=== PATIENT | female | born 1960 | race Caucasian/White ===

== ENCOUNTER → 2016-07-04 | Outpatient (CLI) | payer OTHER ==
[~2016-07-04] VITALS: Ht 162.6 cm; Wt 84.8 kg
[~2016-07-04] MED LIST: ASPIRIN CHEWABL81 MG PO; CALCIUM 600 +1 EACH PO; CLARITIN10 M2 PO; EFFEXOR XR 75 M75 MG PO; LEVOTHYROXINE100 MCG PO; PREVACID30 MG PO; SINGULAIR10 MG PO; SUDOGEST30 MG PO; TENORMIN 50 MG50 MG PO; VITAMIN B-121000 MCG PO; ZESTRIL2.5 MG PO
== END ==
LOC: OPSV 12:00
DX: K50.00 Crohn's disease of small intestine without complications (principal)
CPT/HCPCS: 96365; J3380

== ENCOUNTER → 2016-08-29 | Outpatient (CLI) | payer OTHER ==
[~2016-08-29] VITALS: Ht 162.6 cm; Wt 84.8 kg
== END ==
LOC: OPSV 09:00
DX: K50.00 Crohn's disease of small intestine without complications (principal)
CPT/HCPCS: 96365; J3380

== ENCOUNTER 2020-06-13 11:58 | Inpatient (IN) | payer OTHER ==
[~2020-06-13] VITALS: Ht 162.6 cm; Wt 86.2 kg
[2020-06-13 12:41] LABS: HEMOGLOBIN 13.7 gm/dl (12.3-15.3); RED BLOOD COUNT 4.33 M/UL (4.00-5.10); WHITE BLOOD COUNT 3.8 K/UL (4.5-11.0)
[2020-06-13 13:12] LABS: BUN/CREATININE RATIO 13 (0-10)
[2020-06-13] MEDS ORDERED: CYMBALTA60 MG PO (17:27)
[2020-06-13] MEDS ORDERED: CRESTOR5 MG PO (17:27)
[2020-06-13] MEDS ORDERED: XYZAL5 MG PO (17:28)
[2020-06-13] MEDS ORDERED: ZESTRIL5 MG PO (17:29)
[2020-06-13] MEDS ORDERED: VITAMIN C500 MG PO (17:30)
[2020-06-14 04:46] LABS: HEMOGLOBIN 12.8 gm/dl (12.3-15.3); RED BLOOD COUNT 4.05 M/UL (4.00-5.10)
[2020-06-14 04:48] LABS: WHITE BLOOD COUNT 2.1 K/UL (4.5-11.0)
[2020-06-14 05:10] LABS: BUN/CREATININE RATIO 16 (0-10)
[2020-06-15 04:21] LABS: HEMOGLOBIN 12.5 gm/dl (12.3-15.3); RED BLOOD COUNT 3.96 M/UL (4.00-5.10)
[2020-06-15 04:26] LABS: WHITE BLOOD COUNT 4.9 K/UL (4.5-11.0)
[2020-06-15 04:57] LABS: BUN/CREATININE RATIO 20 (0-10)
[2020-06-16 02:43] LABS: BUN/CREATININE RATIO 19 (0-10)
[2020-06-17 04:13] LABS: BUN/CREATININE RATIO 24 (0-10)
[2020-06-18] MEDS ORDERED: DECADRON IM/I4 MG/ML PO (11:46)
[2020-06-18] MEDS ORDERED: PHENERGAN 25 MG25 M1 PO (11:46)
[2020-06-19 03:28] LABS: RED BLOOD COUNT 4.43 M/UL (4.00-5.10); WHITE BLOOD COUNT 8.8 K/UL (4.5-11.0)
[2020-06-19 03:44] LABS: BUN/CREATININE RATIO 24 (0-10)
--- NOTE | 2020-06-19 12:10 | NUR ---
CALLED DR. STOCKTON PERTAING TO PATIENTS INTIVIO INFUSION. CONSULTED WITH CASE MANAGEMENT PER PROVIDERS SUGGESTION. NO RESOLUTION AT THIS TIME WILL CONTINUE TO MONITOR.
== END 2020-06-19 18:25 | disposition home or self-care (01) | DRG 177 ==
LOC: ER1 11:58 → CDU 16:06 → MED SURG 4 16:06 → PROG CARE 06-14 09:42 → MED SURG 4 06-15 00:25
PROVIDERS: Physician Assistant Medical; ADMIT Internal Medicine
PROC: XW033E5 Introduction of Remdesivir Anti-infective into Peripheral Vein, Percutaneous Approach, New Technology Group 5 (ICD-10-PCS; 2020-06-13)
PROC: 8E0ZXY6 Isolation (ICD-10-PCS; 2020-06-13)
PROC: XW13325 Transfusion of Convalescent Plasma (Nonautologous) into Peripheral Vein, Percutaneous Approach, New Technology Group 5 (ICD-10-PCS; principal; 2020-06-15)
DX: U07.1 COVID-19 (principal); J12.82 Pneumonia due to coronavirus disease 2019; J18.9 Pneumonia, unspecified organism; J96.01 Acute respiratory failure with hypoxia; K50.90 Crohn's disease, unspecified, without complications; D69.6 Thrombocytopenia, unspecified; E11.9 Type 2 diabetes mellitus without complications; E03.9 Hypothyroidism, unspecified; I10 Essential (primary) hypertension; D72.819 Decreased white blood cell count, unspecified; R53.81 Other malaise; J45.909 Unspecified asthma, uncomplicated; Z90.49 Acquired absence of other specified parts of digestive tract; Z79.82 Long term (current) use of aspirin; Z95.0 Presence of cardiac pacemaker; Z79.890 Hormone replacement therapy; Z79.899 Other long term (current) drug therapy
CPT/HCPCS: 0240U; 36415; 36600; 71045; 80048; 80053; 82550; 82553; 82803; 82962; 83036; 83605; 83690; 83874; 84484; 85025; 85027; 85610; 86900; 86901; 86927; 87081; 93005; 94760; 96365; 96366; 96367; 96368; 96375; 96376; 97161; 97530-GP-CQ; 99285; G0378; J1100; J1650; J1956; J7030

== ENCOUNTER → 2020-07-03 | Outpatient (CLI) | payer OTHER ==
[~2020-07-03] VITALS: Ht 162.6 cm; Wt 83.9 kg
[~2020-07-03] MED LIST changes: +CRESTOR5 MG PO; +CYMBALTA60 MG PO; +DECADRON IM/I4 MG/ML PO; +PHENERGAN 25 MG25 M1 PO; +VITAMIN C500 MG PO; +XYZAL5 MG PO; +ZESTRIL5 MG PO
== END ==
LOC: OPSV 10:59
DX: K50.00 Crohn's disease of small intestine without complications (principal)
CPT/HCPCS: 96365; J3380; J7050

== ENCOUNTER → 2020-08-28 | Outpatient (CLI) | payer OTHER | LOC: OPSV 11:00 | DX: K50.00 Crohn's disease of small intestine without complications (principal) | CPT/HCPCS: 96365; J3380; J7050 ==

== ENCOUNTER → 2020-10-23 | Outpatient (CLI) | payer OTHER ==
[~2020-10-23] VITALS: Ht 162.6 cm; Wt 83.9 kg
== END ==
LOC: OPSV 11:00
DX: K50.00 Crohn's disease of small intestine without complications (principal)
CPT/HCPCS: 96365; J3380; J7050

== ENCOUNTER → 2020-12-18 | Outpatient (CLI) | payer OTHER ==
[~2020-12-18] VITALS: Ht 162.6 cm; Wt 83.9 kg
== END ==
LOC: OPSV 11:00
DX: K50.00 Crohn's disease of small intestine without complications (principal)
CPT/HCPCS: 96365; J3380; J7050

== ENCOUNTER → 2021-02-21 | Outpatient (CLI) | payer OTHER ==
[~2021-02-21] VITALS: Ht 162.6 cm; Wt 83.9 kg
== END ==
LOC: OPSV 02-12 11:00
DX: K50.00 Crohn's disease of small intestine without complications (principal)
CPT/HCPCS: 96365; J3380; J7050

== ENCOUNTER → 2021-04-01 | Outpatient (CLI) | payer OTHER | LOC: KOH-I 14:20 | DX: M25.561 Pain in right knee (principal); M17.0 Bilateral primary osteoarthritis of knee | CPT/HCPCS: 73562 ==

== ENCOUNTER → 2021-05-22 | Day surgery (SDC) | payer OTHER ==
[~2021-05-22] MED LIST changes: +ABILIFY 2 MG TAB2 MG PO; +PROAIR HFA8.5 GM INH; +TRULICITY0.75 MG/0. SQ
== END | disposition home or self-care (01) ==
LOC: OR 06:08
DX: D12.2 Benign neoplasm of ascending colon (principal); D12.5 Benign neoplasm of sigmoid colon; K57.30 Diverticulosis of large intestine without perforation or abscess without bleeding; K64.0 First degree hemorrhoids; I10 Essential (primary) hypertension; E11.9 Type 2 diabetes mellitus without complications; E78.5 Hyperlipidemia, unspecified; Z88.0 Allergy status to penicillin; Z88.5 Allergy status to narcotic agent; Z88.8 Allergy status to other drugs, medicaments and biological substances; Z79.82 Long term (current) use of aspirin; Z79.4 Long term (current) use of insulin; Z79.899 Other long term (current) drug therapy; Z20.822 Contact with and (suspected) exposure to COVID-19
CPT/HCPCS: 82962; J2704; J7040

== ENCOUNTER → 2021-06-26 | Outpatient (CLI) | payer OTHER ==
[~2021-06-26] VITALS: Ht 162.6 cm; Wt 83.9 kg
== END ==
LOC: OPSV 06-19 14:00
DX: K50.00 Crohn's disease of small intestine without complications (principal)
CPT/HCPCS: 96365; J3380; J7050

== ENCOUNTER → 2021-08-21 | Outpatient (CLI) | payer OTHER ==
[~2021-08-21] VITALS: Ht 162.6 cm; Wt 83.9 kg
== END ==
LOC: OPSV 11:00
DX: K50.00 Crohn's disease of small intestine without complications (principal)
CPT/HCPCS: 96365; J3380; J7050

== ENCOUNTER → 2021-10-24 | Outpatient (CLI) | payer OTHER ==
[~2021-10-24] VITALS: Ht 162.6 cm; Wt 83.9 kg
== END ==
LOC: OPSV 14:00
DX: K50.00 Crohn's disease of small intestine without complications (principal)
CPT/HCPCS: 96365; J3380; J7050

== ENCOUNTER → 2021-12-19 | Outpatient (CLI) | payer OTHER ==
[~2021-12-19] VITALS: Ht 162.6 cm; Wt 83.9 kg
== END ==
LOC: OPSV 11:00
DX: K50.00 Crohn's disease of small intestine without complications (principal)
CPT/HCPCS: 96365; J3380; J7050